=== PATIENT | female | born 1940 | race Caucasian/White ===

== ENCOUNTER 2020-09-07 21:34 | Emergency (ER) | payer MEDICARE, OTHER ==
[~2020-09-07] VITALS: Ht 157.5 cm; Wt 62.0 kg
[2020-09-07] MEDS ORDERED: CONTRAST GIVEN. MC PRN (22:15)
[2020-09-07] MEDS ORDERED: IOHEXOL 300 MG/ML 75 ML VIAL. IV ONE (22:30)
[2020-09-07] MEDS ORDERED: IV RINGERS SOLUTION,LACTATED 1,000 ML IV ONE (22:30)
[2020-09-07] MEDS ORDERED: ONDANSETRON PF 4 MG/2 ML VIAL. IVP ONE (22:30)
[2020-09-07 22:56] LABS: BACTERIA,URINE FEW /HPF (0-FEW); BILIRUBIN,URINE NEG (NEG); CLARITY,URINE HAZY; COLOR,URINE YELLOW; GLUCOSE,URINE NEG (NEG); NITRITE,URINE NEG (NEG); RBC,URINE OCC /HPF (0-2); SQUAMOUS EPITHELIAL CELL,UR OCC /LPF; UROBILINOGEN,URINE 0.2 mg/dL (0.2 mg/dL); WBC,URINE >40 /HPF (0-4)
[2020-09-07 23:26] LABS: BASO % 0 % (0-3); EOS % 0 % (0-3); HEMATOCRIT 33.5 % (36.0-47.0); HEMOGLOBIN 10.8 g/dL (12.0-15.5); LYMPH # 0.7 x10^3/uL (1.0-4.8); LYMPH % 3 % (24-48); MEAN CORPUSCULAR HEMOGLOBIN 31 pg (25-35); MEAN CORPUSCULAR HGB CONC 32 g/dL (31-37); MEAN CORPUSCULAR VOLUME 96 fL (79-100); MONO # 0.9 x10^3/uL (0.0-1.1); MONO % 4 % (0-9); NEUT # 22.3 x10^3uL (1.8-7.7); NEUT % 93 % (31-73); PLATELET COUNT 422 x10^3/uL (140-400); RED BLOOD COUNT 3.47 x10^6/uL (3.50-5.40); RED CELL DISTRIBUTION WIDTH 14.5 % (11.5-14.5)
[2020-09-07 23:37] LABS: CALCIUM 9.1 mg/dL (8.5-10.1); CREATININE 1.4 mg/dL (0.6-1.0); GFR 36.3; POTASSIUM 5.2 mmol/L (3.5-5.1)
[2020-09-07 23:43] LABS: ALBUMIN 3.3 g/dL (3.4-5.0); ALBUMIN/GLOBULIN RATIO 0.9 (1.0-1.7); TOTAL BILIRUBIN 0.5 mg/dL (0.2-1.0); TOTAL PROTEIN 6.8 g/dL (6.4-8.2)
[2020-09-07 23:57] LABS: % BANDS 7 % (0-9); % LYMPHS 6 % (24-48); % MONOS 4 % (0-10); % SEGS 83 % (35-66)
[2020-09-07 23:58] LABS: PLT ESTIMATE INCREASED (ADEQUATE)
--- NOTE | 2020-09-08 00:56 | RAD ---
CT SCAN OF THE ABDOMEN AND PELVIS WITH IV CONTRAST. History: Reason: ab pain, OMNI 300, 60ml / Spl. Instructions: / History: Comparison:None. Procedure: Contiguous axial images of the abdomen and pelvis were performed after the administration of 60 cc o f Omni 300 IV contrast. Oral contrast: No. Findings: This patchy opacities in the lung bases bilaterally. There is a moderate size hiatal hernia. Liver: Multiple small cysts Spleen: Unremarkable Pancreas: Unremarkable Adrenal Glands: Unremarkable Kidneys: There is marked right hydroureter and right hydronephrosis secondary to a 1 cm stone in the distal right ureter. There is also marked perinephric edema and there is poor perfusion of the right kidney. The appendix is not well seen. There is no mass or lymphadenopathy. There is no free air. There is no free fluid. The urinary bladder appears normal. There is been prior multilevel laminectomy and fusion of the lumbar spine. Impression: 1. Basilar pulmonary infiltrates could be discoid atelectasis or pneumonia. 2. Marked right hydronephrosis right hydroureter secondary to a 1 cm stone in the distal right ureter . 3. Marked perinephric edema on the right could be secondary to a ruptured calyx. End impression PQRS Compliance Statement: One or more of the following individualized dose reduction techniques were utilized for this examinat ion: 1. Automated exposure control 2. Adjustment of the mA and/or kV according to patient size 3. Use of iterative reconstruction technique Electronically signed by: Sarthak Rios III, MD (09/08/2020 12:54 AM) [facility]
--- NOTE | 2020-09-08 01:18 | PHYS DOC ---
Adult General Chief Complaint Chief Complaint: ABDOMINAL PAIN HPI HPI Patient is a 80-year-old female that presents to the emergency department with a chief complaint of abdominal pain with nausea and vomiting. States has been going on for couple of days Review of Systems Review of Systems Constitutional: Denies fever or chills [] Eyes: Denies change in visual acuity, redness, or eye pain [] HENT: Denies nasal congestion or sore throat [] Respiratory: Denies cough or shortness of breath [] Cardiovascular: No additional information not addressed in HPI [] GI: Denies abdominal pain, nausea, vomiting, bloody stools or diarrhea [] : Denies dysuria or hematuria [] Musculoskeletal: Denies back pain or joint pain [] Integument: Denies rash or skin lesions [] Neurologic: Denies headache, focal weakness or sensory changes [] Endocrine: Denies polyuria or polydipsia [] All other systems were reviewed and found to be within normal limits, except as documented in this note. Current Medications Current Medications Current Medications Medications (Trade) Dose Ordered Sig/[place] Start Time Stop Time Status Last Admin Dose Admin Info (Do NOT chart on this entry -- for MONITORING) 1 each PRN DAILY PRN 09/07/20 22:15 09/09/20 22:14 Iohexol (Omnipaque 300 Mg/ml) 75 ml 1X ONCE 09/07/20 22:30 09/07/20 22:31 DC 09/08/20 00:25 60 ML Lactated Ringer's 1,000 ml @ 1,000 mls/hr 1X ONCE 09/07/20 22:30 09/07/20 23:29 DC 09/07/20 23:13 1,000 MLS/HR Ondansetron HCl (Zofran) 4 mg 1X ONCE 09/07/20 22:30 09/07/20 22:31 DC 09/07/20 23:13 4 MG Allergies Allergies Allergies Coded Allergies Type Severity Reaction Last Updated Verified No Known Drug Allergies 09/07/20 No Physical Exam Physical Exam Constitutional: Well developed, well nourished, no acute distress, non-toxic appearance. [] HENT: Normocephalic, atraumatic, bilateral external ears normal, oropharynx moist, no oral exudates, nose normal. [] Eyes: PERRLA, EOMI, conjunctiva normal, no discharge. [] Neck: Normal range of motion, no tenderness, supple, no stridor. [] Cardiovascular:Heart rate regular rhythm, no murmur [] Lungs & Thorax: Bilateral breath sounds clear to auscultation [] Abdomen: Bowel sounds normal, soft, no tenderness, no masses, no pulsatile masses. [] Skin: Warm, dry, no erythema, no rash. [] Back: No tenderness, no CVA tenderness. [] Extremities: No tenderness, no cyanosis, no clubbing, ROM intact, no edema. [] Neurologic: Alert and oriented X 3, normal motor function, normal sensory function, no focal deficits noted. [] Psychologic: Affect normal, judgement normal, mood normal. [] Current Patient Data Lab Results Laboratory Tests Test 09/07/20 22:25 09/07/20 23:10 Urine Collection Type Unknown Urine Color Yellow Urine Clarity Hazy Urine pH 7.5 Urine Specific [place] 1.020 Urine Protein Neg (NEG-TRACE) Urine Glucose (UA) Neg mg/dL (NEG) Urine Ketones (Stick) Neg mg/dL (NEG) Urine Blood Neg (NEG) Urine Nitrite Neg (NEG) Urine Bilirubin Neg (NEG) Urine Urobilinogen Dipstick 0.2 mg/dL (0.2 mg/dL) Urine Leukocyte Esterase Trace (NEG) Urine RBC Occ /HPF (0-2) Urine WBC >40 /HPF (0-4) Urine Squamous Epithelial Cells Occ /LPF Urine Bacteria Few /HPF (0-FEW) White Blood Count 24.0 x10^3/uL (4.0-11.0) H Red Blood Count 3.47 x10^6/uL (3.50-5.40) L Hemoglobin 10.8 g/dL (12.0-15.5) L Hematocrit 33.5 % (36.0-47.0) L Mean Corpuscular Volume 96 fL (79-100) Mean Corpuscular Hemoglobin 31 pg (25-35) Mean Corpuscular Hemoglobin Concent 32 g/dL (31-37) Red Cell Distribution Width 14.5 % (11.5-14.5) Platelet Count 422 x10^3/uL (140-400) H Neutrophils (%) (Auto) 93 % (31-73) H Lymphocytes (%) (Auto) 3 % (24-48) L Monocytes (%) (Auto) 4 % (0-9) Eosinophils (%) (Auto) 0 % (0-3) Basophils (%) (Auto) 0 % (0-3) Neutrophils # (Auto) 22.3 x10^3uL (1.8-7.7) H Lymphocytes # (Auto) 0.7 x10^3/uL (1.0-4.8) L Monocytes # (Auto) 0.9 x10^3/uL (0.0-1.1) Eosinophils # (Auto) 0.0 x10^3/uL (0.0-0.7) Basophils # (Auto) 0.0 x10^3/uL (0.0-0.2) Segmented Neutrophils % 83 % (35-66) H Band Neutrophils % 7 % (0-9) Lymphocytes % 6 % (24-48) L Monocytes % 4 % (0-10) Platelet Estimate Increased (ADEQUATE) Sodium Level 138 mmol/L (136-145) Potassium Level 5.2 mmol/L (3.5-5.1) H Chloride Level 103 mmol/L (98-107) Carbon Dioxide Level 27 mmol/L (21-32) Anion Gap 8 (6-14) Blood Urea Nitrogen 26 mg/dL (7-20) H Creatinine 1.4 mg/dL (0.6-1.0) H Estimated GFR (Cockcroft-Gault) 36.3 BUN/Creatinine Ratio 19 (6-20) Glucose Level 152 mg/dL (70-99) H Calcium Level 9.1 mg/dL (8.5-10.1) Total Bilirubin 0.5 mg/dL (0.2-1.0) Aspartate Amino Transferase (AST) 18 U/L (15-37) Alanine Aminotransferase (ALT) 22 U/L (14-59) Alkaline Phosphatase 80 U/L (46-116) Troponin I Quantitative < 0.017 ng/mL (0-0.055) Total Protein 6.8 g/dL (6.4-8.2) Albumin 3.3 g/dL (3.4-5.0) L Albumin/Globulin Ratio 0.9 (1.0-1.7) L Lipase 118 U/L (73-393) EKG EKG [] Radiology/Procedures Radiology/Procedures [] CT SCAN OF THE ABDOMEN AND PELVIS WITH IV CONTRAST. History: Reason: ab pain, OMNI 300, 60ml / Spl. Instructions: / History: Comparison:None. Procedure: Contiguous axial images of the abdomen and pelvis were performed after the administration of 60 cc of Omni 300 IV contrast. Oral contrast: No. Findings: This patchy opacities in the lung bases bilaterally. There is a moderate size hiatal hernia. Liver: Multiple small cysts Spleen: Unremarkable Pancreas: Unremarkable Adrenal Glands: Unremarkable Kidneys: There is marked right hydroureter and right hydronephrosis secondary to a 1 cm stone in the distal right ureter. There is also marked perinephric edema and there is poor perfusion of the right kidney. The appendix is not well seen. There is no mass or lymphadenopathy. There is no free air. There is no free fluid. The urinary bladder appears normal. There is been prior multilevel laminectomy and fusion of the lumbar spine. Impression: 1. Basilar pulmonary infiltrates could be discoid atelectasis or pneumonia. 2. Marked right hydronephrosis right hydroureter secondary to a 1 cm stone in the distal right ureter. 3. Marked perinephric edema on the right could be secondary to a ruptured calyx. End impression Heart Score C/O Chest Pain: No Risk Factors: Risk Factors: DM, Current or recent (<one month) smoker, HTN, HLP, family history of CAD, obesity. Risk Scores: Risk Factors: DM, Current or recent (<one month) smoker, HTN, HLP, family history of CAD, obesity. Course & Med Decision Making Course & Med Decision Making Patient is a 80-year-old female who presents with a chief complaint of abdominal pain and fatigue associated with nausea and vomiting for couple days Vital signs notable for hypertension and hypoxia on room air, and placed on 2 L nasal cannula for a oxygen saturation of 94%. EKG noted above with a right bundle branch morphology but no STEMI. Troponin normal. Laboratory analysis notable for neutrophilic leukocytosis, elevated creatinine in the urine suggestive of urinary tract infection. CT of the abdomen pelvis caught bilateral pulmonary infiltrates suggestive of atelectasis or pneumonia as well as a mild hydronephrosis/hydroureter secondary to a 1 cm stone. Given patient's white count, tachypnea, hypoxia, possible pneumonia and possible urinary tract infection, patient was started on broad-spectrum antibiotics. Discussed all findings with patient and recommended admission to for continued evaluation and treatment of her sepsis, secondary to either pneumonia and/or infection by urology. Patient grateful, verbalized understanding and agreed with plan of admission. [] Dragon Disclaimer Dragon Disclaimer This electronic medical record was generated, in whole or in part, using a voice recognition dictation system. Departure Departure: Impression: Primary Impression: Sepsis Additional Impressions: Pneumonia Urinary tract infection Ureterolithiasis Disposition: ADMITTED INPT THIS HOSP Admitting Physician: Laxmi Escamilla Condition: IMPROVED Referrals: NIYA DELEON MD (PCP) Problem Qualifiers ANMOL ROSE MD Sep 08, 2020 01:18
[2020-09-08] MEDS ORDERED: IV RINGERS SOLUTION,LACTATED 1,000 ML IV ONE (02:00)
[2020-09-08] MEDS ORDERED: ONDANSETRON PF 4 MG/2 ML VIAL. IVP ONE (02:00)
[2020-09-08] MEDS ORDERED: MORPHINE SULFATE 4 MG/ML DISP.SYRIN. IV ONE (02:00)
--- NOTE | 2020-09-08 03:02 | EKG ---
[address] [address] Test Date: 2020-09-07 Test Time: 22:05:50 Pat Name: PARAM BENSON Department: Room: Gender: F [employer] Drawer: MINESH : 1940 Requested By: ANMOL ROSE Order Number: [id number] Reading MD: Measurements Intervals [place] Rate: 84 P: 58 PA: 158 QRS: 92 QRSD: 132 T: 70 QT: 372 QTc: 443 Interpretive Statements SINUS RHYTHM LEFT ATRIAL ABNORMALITY RIGHTWARD AXIS RIGHT BUNDLE BRANCH BLOCK RVH WITH REPOLARIZATION ABNORMALITY ABNORMAL ECG RI6.02 No previous ECG available for comparison
[2020-09-08 04:00] VITALS: BP 183/79
== END 2020-09-08 04:10 | disposition admitted as inpatient to this hospital (09) ==
LOC: ER 21:34
DX: A41.9 Sepsis, unspecified organism (principal); J18.9 Pneumonia, unspecified organism; N39.0 Urinary tract infection, site not specified; N13.2 Hydronephrosis with renal and ureteral calculous obstruction
CPT/HCPCS: 36415; 74177; 80053; 81001; 83605; 83690; 84484; 85007; 85025; 87077; 87086; 87186; 93005; 96361; 96365; 96375; 96376; 99291; J1956; J2270; J2405; J7120; Q9967; 99285-25